=== PATIENT | female | born 1995 | race Caucasian/White ===

== ENCOUNTER 2017-09-25 12:11 | Emergency (ER) | payer SELFPAY ==
[2017-09-25 12:17] VITALS: RESP 16
--- NOTE | 2017-09-25 12:45 | EDPHY ---
H & P Time Seen by Provider: 09/25/17 12:34 HPI/ROS: CHIEF COMPLAINT: Flu-like symptoms times 4 days HISTORY OF PRESENT ILLNESS: 22-year-old female who otherwise healthy, immunocompetent, no influenza vaccination, complaining of flu-like symptoms for the past 4 days. Feels like he is getting progressively better. Symptoms include sore throat, myalgias, fever, chills. Denies: Chest pain, dyspnea, abdominal pain, nausea, vomiting. REVIEW OF SYSTEMS: A ten point review of systems was performed and is negative with the exception of the items mentioned in the HPI PAST MEDICAL & SURGICAL HISTORY: no influenza vaccination SOCIAL HISTORY: Nonsmoker PHYSICAL EXAM (Prior to examination, patient consented to physical exam, hands were washed and my usual and customary physical exam procedures followed) 1) GENERAL: Well-developed, well-nourished, alert and oriented. Appears non toxic. 2) HEAD: Normocephalic, atraumatic 3) HEENT: Pupils equal, round, reactive to light bilaterally. Sclera anicteric. Nasopharynx, oropharynx, clear, no lesions. No tonsillar enlargement or exudate Ears bilaterally with normal tympanic membranes. 4) NECK: Full range of motion, no meningeal signs. No adenopathy 5) LUNGS: Clear auscultation bilaterally, no wheezes, no rhonchi, no retractions. 6) HEART: Regular rate and rhythm, no murmur, no heave, no gallop. 7) ABDOMEN: No guarding, no rebound, no focal tenderness, negative McBurney's, negative Silva's, negative Rovsing's, negative peritoneal sign, 8) MUSCULOSKELETAL: Moving all extremities, no focal areas of tenderness, no obvious trauma. No peripheral edema or discoloration. 9) BACK: No CVA tenderness, no midline vertebral tenderness, no fluctuance, no step-off, no obvious trauma, no visual or palpable abnormality. 10) SKIN: No rash, no petechiae. 11) Psychiatric: Patient is oriented X 3, there is no agitation. DIFFERENTIAL DIAGNOSIS: In no particular include but limited to viral syndrome , influenza, pneumonia, meningitis Smoking Status: Never smoked Constitutional: Initial Vital Signs Temperature (C) 36.6 C 09/25/17 12:15 Heart Rate 70 09/25/17 12:15 Respiratory Rate 16 09/25/17 12:15 Blood Pressure 112/87 H 09/25/17 12:15 O2 Sat (%) 97 09/25/17 12:15 O2 Delivery Mode Room Air Allergies/Adverse Reactions: No Known Allergies Allergy (Unverified 09/25/17 12:15) Home Medications: Medication Instructions Recorded NK [No Known Home Meds] 09/25/17 MDM/Departure - MDM ED Course/Re-evaluation: I think the patient's symptoms are likely viral in origin. We discussed more more than likely influenza etiology given current public health situation, active influenza vaccination. At this time she is not hypoxemic, lungs are clear bilaterally. I do not think that hospitalization is indicated. She is outside the window for antiviral treatment and I do not think the benefits of Tamiflu outweigh the risks in this otherwise healthy 22-year-old. I did that chest x-ray is indicated. Discussed supportive care, contagion precautions, avoiding pop spaces. She feels comfortable with this plan. Care of patient under supervision of secondary supervising physician Dr Jesse Bui. - Depart Disposition: Home, Routine, Self-Care Clinical Impression: Influenza-like illness Condition: Good Instructions: Influenza (DC), Influenza (ED) Additional Instructions: You were examined in the emergency department today for upper respiratory infection (URI) like symptoms. While more URIs are caused by viral illnesses, we cannot always exclude the possibility of a bacterial infection that may require treatment with antibiotics.. Return to the emergency department immediately for change in breathing habits, change in voice, change in swallowing habits, change in mental status, or any other symptoms that concern you. Adult Pain & Fever Control: We recommend Acetaminophen (Tylenol) and Ibuprofen (Motrin,Advil) for pain and fever control. When fever is high or pain severe, both drugs can be used at the same time, but at different intervals. Please note the time differences. Your dose is: Acetaminophen 1000mg every 4 to 6 hours Ibuprofen 800mg every 6 hours with food OR Note: do not take Acetaminophen with Hydrocodone (Vicodin, Lortab) or Oycodone (Percocet). These medications also contain Acetaminophen. No more than 3000mg of Acetaminophen should be taken in 24 hours (for an adult). Stand Alone Forms: Work Excuse Referrals: Ema Almanza, [Doctor of Osteopathy] - 2-3 days, call for appt.
[2017-09-25 13:16] VITALS: BP 122/72; PULSE 73; TEMP 98.1; O2SAT 98
== END 2017-09-25 13:14 | disposition home or self-care (01) ==
DX: J11.1 Influenza due to unidentified influenza virus with other respiratory manifestations (principal)